=== PATIENT | female | born 1990 | race Two or more races ===

== ENCOUNTER 2021-02-13 01:29 | Emergency (ER) | payer MEDICAID ==
[~2021-02-13] VITALS: Ht 162.6 cm; Wt 83.1 kg
[2021-02-13 01:55] LABS: BASOPHILS % (AUTO) 0.5 % (0-1); EOSINOPHILS # (AUTO) 0.2 X10'3 (0-0.9); HEMATOCRIT 35.2 % (35.0-45.0); LYMPHOCYTES # (AUTO) 3.3 X10'3 (1.1-4.8); LYMPHOCYTES % (AUTO) 37.1 % (21-51); MEAN CORPUSCULAR HEMOGLOBIN 29.1 PG (27.0-31.0); MEAN CORPUSCULAR HGB CONC 34.1 g/dL (33.0-36.5); MEAN CORPUSCULAR VOLUME 85.3 FL (78-98); MEAN PLATELET VOLUME 9.1 FL (7.4-10.4); MONOCYTES # (AUTO) 0.8 X10'3 (0-0.9); MONOCYTES % (AUTO) 9.1 % (2-12); NEUTROPHILS # (AUTO) 4.6 X10'3 (1.8-7.7); NEUTROPHILS % (AUTO) 51.3 % (42-75); PLATELET COUNT 363 X10'3 (140-440); RED BLOOD COUNT 4.12 X10'6 (4.20-5.60); RED CELL DISTRIBUTION WIDTH 14.1 % (11.5-14.5); WHITE BLOOD COUNT 8.9 X10'3 (4.5-11.0)
[2021-02-13 02:03] LABS: PARTIAL THROMBOPLASTIN TIME 25 SECONDS (22-32)
[2021-02-13 02:05] LABS: ALANINE AMINOTRANSFERASE 22 U/L (12-78); ALBUMIN/GLOBULIN RATIO 1.1 (1.1-1.5); ALKALINE PHOSPHATASE 79 IU/L (46-116); ANION GAP 12 (8-16); ASPARTATE AMINO TRANSFERASE 12 U/L (10-37); BILIRUBIN,TOTAL 0.2 MG/DL (0.1-1.0); BLOOD UREA NITROGEN 13 MG/DL (7-18); BUN/CREATININE RATIO 19.4 (6.6-38.0); CALCIUM 8.7 MG/DL (8.5-10.1); CHLORIDE 103 MMOL/L (99-107); CREATININE 0.67 MG/DL (0.40-0.90); GLUCOSE 97 MG/DL (70-104); POTASSIUM 3.4 MMOL/L (3.5-5.1); SODIUM 140 MMOL/L (135-145); TOTAL CARBON DIOXIDE 24.6 MMOL/L (24-32); TOTAL PROTEIN 7.7 G/DL (6.4-8.2); eGFR > 90 ML/MIN
[2021-02-13 02:08] LABS: TROPONIN I < 0.04 NG/ML (0.0-0.05)
[2021-02-13] MEDS ORDERED: ketorolac trometh. 30mg/ml inj. IV ONE (02:30)
[2021-02-13] MEDS ORDERED: proCHLORperazine 10 MG/2 ml inj IV ONE (02:30)
[2021-02-13] MEDS ORDERED: normal saline 1000ml 1,000 ML IV ONE ×2 (02:30→02:55)
[2021-02-13] MEDS ORDERED: diphenhydrAMINE 50 mg/ml inj IV ONE (02:30)
[2021-02-13] MEDS ORDERED: LORazepam 2 mg/ml vial IV ONE (02:55)
--- NOTE | 2021-02-13 02:56 | NUR ---
pt appears extessively anxious and is now tachycardic in the 140's after medication administration. edmd ashleigh made aware and received verbal orders for ativan 0.5mg iv, new ekg, and 1l normal saline bolus. order placed as received
[2021-02-13 04:50] VITALS: BP 125/71
== END 2021-02-13 04:52 | disposition home or self-care (01) ==
LOC: ER 01:29
DX: G43.919 Migraine, unspecified, intractable, without status migrainosus (principal); M54.2 Cervicalgia; M25.511 Pain in right shoulder; R07.89 Other chest pain; R53.1 Weakness; R20.0 Anesthesia of skin; R06.4 Hyperventilation
CPT/HCPCS: 36415; 70450; 71045; 80053; 82948; 84484; 85025; 85610; 85730; 93005; 96361; 96374; 96375; 99285; J0780; J1200; J1885; J2060; J7030